=== PATIENT | female | born 1960 | race Caucasian/White ===

== ENCOUNTER 2016-12-10 11:07 | Inpatient (IN) | payer SELFPAY ==
[~2016-12-10] VITALS: Ht 152.4 cm; Wt 58.0 kg
[~2016-12-10 11:07] MED LIST: GABA300C3 PO; GLUCTAB PO; LEVO50IN PO; LISI-363 PO
[2016-12-10 11:09] VITALS: BP 133/59; PULSE 86; RESP 18; TEMP 99.3; O2SAT 94
--- NOTE | 2016-12-10 11:18 | PD ---
Physical Exam Time Seen by Provider: 11:15 Narrative 56yo F c/o episodes like shes "falling asleep" while standing up and then opening her eyes and not remembering what happened. Been happening since Saturday. Multiple times while at at home and work. Witnessed by coworker with patient. Similar symptoms 2 years ago due to kidney failure. Denies falling. Patient seen in triage. VS reviewed. Awaiting bed placement. Data Data Last Documented VS Vital Signs Date Time Temp Pulse Resp B/P Pulse Ox O2 Delivery O2 Flow Rate FiO2 12/10/16 11:09 99.3 86 18 133/59 94 Room Air MDM Supervised Visit with MELLY: Jaz Christina Dec 10, 2016 11:18
[2016-12-10] MEDS ORDERED: LISI-515 PO (12:23)
[2016-12-10] MEDS ORDERED: PREG25 PO (12:23)
[2016-12-10] MEDS ORDERED: METF1000 PO (12:23)
[2016-12-10] MEDS ORDERED: MORP1CAP64 PO (12:23)
[2016-12-10] MEDS ORDERED: SODIUM CHLOR 0.9% 1000 ML INJ 1,000 ML IV SCH (12:44)
[2016-12-10] MEDS ORDERED: SODIUM CHLORIDE 0.9% FLUSH 5 ML FLUSH IV FLUSH PRN (12:45)
--- NOTE | 2016-12-10 12:47 | PD ---
HPI Chief Complaint: Syncope/Near-Syncope Time Seen by Provider: 12:15 Travel History International Travel<30 days: No Contact w/Intl Traveler<30days: No Traveled to known affect area: No History of Present Illness HPI 56-year-old female came to the emergency room with her friend with history of progressive incoordination, increased fatigueness and increased frequency of blanking out. Patient works in a [employer] and her friend works as a colleague as well. She says she has known her for past 8 months and patient works Fridays, Saturdays and Sundays. And lately over the past couple weeks everybody has noticed that she has been blanking off in the middle of her work. She also looks more fatigued. Patient agrees with this. Says over the past week she slept almost 16 hours every day and still felt like she was fatigued. Yesterday while cooking she ended up burning her hand because she was incoordinated and blanked off. Patient has history of diabetes and says that last week when she came home and checked her blood sugar was 68. He has had poor appetite lately and in past 3 months has lost 15 pounds of weight. She also has history of chronic pain and is on morphine for the pain but has not increased her dose. In fact because of these symptoms instead of taking the morphine twice a day she's been taking once a day. She has history of cervical pain and cervical surgery in the past. Her vital signs were stable. [facility] Past Medical History Narrative Medical List of her past medical, surgical, social family history as reviewed from the nursing note. Hx Anticoagulant Therapy: No Cardiovascular Problems: Yes (HTN) Chemotherapy: No Cerebrovascular Accident: No Diabetes: Yes Patient Takes Glucophage: No Diminished Hearing: No Gastrointestinal Disorders: Yes (Crohn's disease) Hypertension: Yes Respiratory: No Thyroid Disease: Yes Tetanus Vaccination: Unknown Influenza Vaccination: No ?: Not : 4 Para: 3 Ectopic : Yes Past Surgical History Cholecystectomy: Yes Gynecologic Surgery: Yes (right ectopic) Hysterectomy: Yes Other Surgery: Yes (NECK SURGERY) Social History Alcohol Use: No Tobacco Use: Yes (1 PPD) Substance Use: No Allergies-Medications (Allergen,Severity, Reaction): Coded Allergies: Sulfa (Sulfonamide Antibiotics) (Unverified Adverse Reaction, Severe, RASH -HIVES, 12/11/16) DENIES ANY ALLERGIE codeine (Unverified Adverse Reaction, Severe, RASH, 12/11/16) penicillin G (Unverified Adverse Reaction, Intermediate, STOMACH BURNING, 12/11/16) Comments List of her allergies reviewed from the nursing note. Reported Meds & Prescriptions Reported Meds & Active Scripts Active Reported Lisinopril 20 Mg Tab 20 Mg PO DAILY Lyrica (Pregabalin) 25 Mg Cap 25 Mg PO DAILY Morphine ER 24 HR (Morphine Sulfate) 60 Mg Caper 60 Mg PO BID Metformin (Metformin HCl) 1,000 Mg Tab 1,000 Mg PO BIDPC With meals Narrative Medication List of her home medications reviewed from the nursing note. Review of Systems Except as stated in HPI: all other systems reviewed are Neg Physical Exam Narrative GENERAL: Awake, alert, no obvious distress SKIN: Focused skin assessment warm/dry. HEAD: Atraumatic. Normocephalic. EYES: Pupils equal and round. No scleral icterus. No injection or drainage. Mattering around her eyelashes. ENT: No nasal bleeding or discharge. Mucous membranes pink and moist. NECK: Trachea midline. No JVD. CARDIOVASCULAR: Regular rate and rhythm. No murmur appreciated. RESPIRATORY: No accessory muscle use. Clear to auscultation. Breath sounds equal bilaterally. GASTROINTESTINAL: Abdomen soft, non-tender, nondistended. Hepatic and splenic margins not palpable. MUSCULOSKELETAL: No obvious deformities. No clubbing. No cyanosis. No edema. NEUROLOGICAL: Awake and alert. No obvious cranial nerve deficits. Strength slightly diminished in the left upper and left lower extremity and slight ataxia and left upper and left lower extremity. Bilateral areflexia of the patellar reflex and right biceps reflex. Left biceps reflex intact. Normal speech. PSYCHIATRIC: Appropriate mood and affect; insight and judgment normal. Data Data Last Documented VS Vital Signs Date Time Temp Pulse Resp B/P Pulse Ox O2 Delivery O2 Flow Rate FiO2 12/10/16 15:00 78 16 108/52 99 Nasal Cannula 2 12/10/16 11:09 99.3 Orders Electrocardiogram (12/10/16 12:44) Complete Blood Count With Diff (12/10/16 12:44) Comprehensive Metabolic Panel (12/10/16 12:44) Creatine Kinase (Cpk) (12/10/16 12:44) Prothrombin Time / Inr (Pt) (12/10/16 12:44) Troponin I (12/10/16 12:44) Thyroid Stimulating Hormone (12/10/16 12:44) Urinalysis - C+S If Indicated (12/10/16 12:44) Blood Culture (12/10/16 12:44) Chest, Pa & Lat (12/10/16 12:44) Ct Brain W/O Iv Contrast(Rout) (12/10/16 12:44) Blood Glucose (12/10/16 12:44) Ecg Monitoring (12/10/16 12:44) Iv Access Insert/Monitor (12/10/16 12:44) Oximetry (12/10/16 12:44) Sodium Chloride 0.9% Flush (Ns Flush) (12/10/16 12:45) Sodium Chlor 0.9% 1000 Ml Inj (Ns 1000 M (12/10/16 12:44) Drug Screen, Random Urine (12/10/16 12:44) Alcohol (Ethanol) (12/10/16 12:44) Tylenol (Acetaminophen) (12/10/16 12:44) Salicylates (Aspirin) (12/10/16 12:44) Ct Cerv Spine W/O Contrast (12/10/16 ) Urine Culture (12/10/16 13:07) Ct Thorax/ Chest W Iv Contrast (12/10/16 ) Iohexol 350 Inj (Omnipaque 350 Inj) (12/10/16 15:54) Admit Order (Ed Use Only) (12/10/16 17:14) Labs Laboratory Tests Test 12/10/16 12/10/16 12:50 13:07 White Blood Count 13.1 TH/MM3 Red Blood Count 4.46 MIL/MM3 Hemoglobin 13.3 GM/DL Hematocrit 40.7 % Mean Corpuscular Volume 91.2 FL Mean Corpuscular Hemoglobin 29.9 PG Mean Corpuscular Hemoglobin 32.7 % Concent Red Cell Distribution Width 14.9 % Platelet Count 147 TH/MM3 Mean Platelet Volume 8.2 FL Neutrophils (%) (Auto) 85.8 % Lymphocytes (%) (Auto) 8.7 % Monocytes (%) (Auto) 4.9 % Eosinophils (%) (Auto) 0.2 % Basophils (%) (Auto) 0.4 % Neutrophils # (Auto) 11.3 TH/MM3 Lymphocytes # (Auto) 1.1 TH/MM3 Monocytes # (Auto) 0.6 TH/MM3 Eosinophils # (Auto) 0.0 TH/MM3 Basophils # (Auto) 0.1 TH/MM3 CBC Comment DIFF FINAL Differential Comment Prothrombin Time 11.9 SEC Prothromb Time International 1.1 RATIO Ratio Sodium Level 139 MEQ/L Potassium Level 3.6 MEQ/L Chloride Level 102 MEQ/L Carbon Dioxide Level 28.9 MEQ/L Anion Gap 8 MEQ/L Blood Urea Nitrogen 10 MG/DL Creatinine 0.68 MG/DL Estimat Glomerular Filtration 90 ML/MIN Rate Random Glucose 106 MG/DL Calcium Level 9.0 MG/DL Total Bilirubin 0.4 MG/DL Aspartate Amino Transf 23 U/L (AST/SGOT) Alanine Aminotransferase 17 U/L (ALT/SGPT) Alkaline Phosphatase 140 U/L Total Creatine Kinase 79 U/L Troponin I LESS THAN 0.02 NG/ML Total Protein 7.6 GM/DL Albumin 3.5 GM/DL Thyroid Stimulating Hormone 1.870 uIU/ML 3rd Gen Salicylates Level 3.4 MG/DL Acetaminophen Level LESS THAN 2.0 MCG/ML Ethyl Alcohol Level LESS THAN 3 MG/DL Urine Color YELLOW Urine Turbidity CLEAR Urine pH 6.5 Urine Specific [place] 1.020 Urine Protein 30 mg/dL Urine Glucose (UA) 300 mg/dL Urine Ketones NEG mg/dL Urine Occult Blood NEG Urine Nitrite NEG Urine Bilirubin NEG Urine Urobilinogen LESS THAN 2.0 MG/DL Urine Leukocyte Esterase TRACE Urine RBC 1 /hpf Urine WBC 1 /hpf Urine Squamous Epithelial <1 /hpf Cells Urine Bacteria RARE /hpf Urine Mucus FEW /lpf Microscopic Urinalysis Comment CATH-CULTURE IND Urine Opiates Screen POS Urine Barbiturates Screen NEG Urine Amphetamines Screen NEG Urine Benzodiazepines Screen NEG Urine Cocaine Screen NEG Urine Cannabinoids Screen NEG MDM Medical Decision Making Medical Screen Exam Complete: Yes Emergency Medical Condition: Yes Medical Record Reviewed: Yes Interpretation(s) Twelve-lead EKG was reviewed by me. Normal sinus rhythm, normal axis, nonspecific ST-T wave changes. Heart rate of 81 bpm. Differential Diagnosis CVA, intracranial bleed, intracranial tumor, cervical stenosis, electrolyte abnormality, medication related Narrative Course 2:16 PM the test results of back and CMP is within acceptable limits. CBC shows leukocytosis. Head CT is negative. Awaiting for the cervical CT scan report. Awaiting for the chest x-ray. If all the test results are within normal limits then I intend to discharge the patient home and she should get an MRI as an outpatient through her primary care. 2:[address] scan of the cervical spine as well as the chest x-ray is suggestive of consolidative processes in the lungs along with mediastinal lymphadenopathy. The radiologist has recommended a CT scan of the chest. I've ordered a CT chest with IV contrast. Awaiting for the test to be done and resulted. 5:[address] scan of the chest was suggestive of possible malignancy with the bilateral patchiness and lymphadenopathy in the form of possible lymphoma. She would require art class model to consult and possibly do a bronchoscopy. I have talked to the patient and she is agreed to get admitted. I just spoke with the hospitalist was accepted the case. Patient was dozing off in her oxygen saturation dipped down to 89% on room air. She is currently on nasal cannula. Patient told me that she used to see Dr. Thorne but hasn't seen him in more than 6 months since she does not have insurance and cannot afford him. Procedures EKG Prior to Arrival: No Diagnosis Primary Impression: Generalized weakness Additional Impressions: possible lung malignancy Hypoxia Admitting Information Admitting Physician Requests: Admit Scripts Prednisone 20 Mg Tab20 Mg PO BID #6 TAB Ref 0 Prov:Marixa Jackson DO 12/12/16 Levofloxacin (Levaquin)750 Mg [id number] Mg PO Q24H #5 TAB Prov:Marixa Jackson DO 12/12/16 Marii Oliva MD Dec 10, 2016 12:47
[2016-12-10 13:33] LABS: AUTOMATED NEUTROPHIL # 11.3 TH/MM3 (1.8-7.7); BASOPHIL # 0.1 TH/MM3 (0-0.2); BASOPHIL % 0.4 % (0.0-2.0); EOSINOPHIL % 0.2 % (0.0-4.0); HEMATOCRIT 40.7 % (35.0-46.0); HEMO FLAGS DIFF FINAL; LYMPH % 8.7 % (9.0-44.0); LYMPHOCYTE # 1.1 TH/MM3 (1.0-4.8); MEAN CELL VOLUME 91.2 FL (80.0-100.0); MEAN CORPUSCULAR HEMOGLOBIN 29.9 PG (27.0-34.0); MEAN CORPUSCULAR HGB CONC 32.7 % (32.0-36.0); MONO % 4.9 % (0.0-8.0); NEUT % 85.8 % (16.0-70.0); PLATELET COUNT 147 TH/MM3 (150-450); RED BLOOD COUNT 4.46 MIL/MM3 (4.00-5.30); RED CELL DISTRIBUTION WIDTH 14.9 % (11.6-17.2); WHITE BLOOD COUNT 13.1 TH/MM3 (4.0-11.0)
[2016-12-10 13:40] LABS: INTERNATIONAL NORMALIZED RATIO 1.1 RATIO; PROTHROMBIN TIME - PATIENT 11.9 SEC (9.8-11.6)
[2016-12-10 13:46] LABS: ANION GAP 8 MEQ/L (5-15); AST (GOT) 23 U/L (15-37); BICARBONATE 28.9 MEQ/L (21.0-32.0); BLOOD UREA NITROGEN 10 MG/DL (7-18); CHLORIDE 102 MEQ/L (98-107); GLOMERULAR FILTRATION RATE 90 ML/MIN (>89); POTASSIUM 3.6 MEQ/L (3.5-5.1); SODIUM (NA) 139 MEQ/L (136-145)
[2016-12-10 13:50] LABS: AMPHETAMINE, URINE NEG (NEG); BARBITURATES, URINE NEG (NEG)
[2016-12-10 13:52] LABS: COCAINE, URINE NEG (NEG)
[2016-12-10 13:57] LABS: ALKALINE PHOSPHATASE 140 U/L (45-117); ALT (GPT) 17 U/L (10-53); TOTAL BILIRUBIN ADULT 0.4 MG/DL (0.2-1.0)
[2016-12-10 13:59] LABS: CREATINE KINASE 79 U/L (26-192)
[2016-12-10 14:00] LABS: ACETAMINOPHEN LESS THAN 2.0 MCG/ML (10.0-30.0)
[2016-12-10 14:06] LABS: BACTERIA, URINE RARE /hpf; BLOOD, URINE NEG (NEG); COMMENT (UR) CATH-CULTURE IND; CULTURE IF INDICATED CATH CULTURE IND; GLUCOSE,URINE 300 mg/dL (NEG); KETONE, URINE NEG (NEG); MUCUS URINE FEW /lpf (OCC); NITRITE,URINE NEG (NEG); PH, URINE 6.5 (5.0-8.5); SQUAMOUS EPITHELIAL CELL URINE <1 /hpf (0-5); URINE COLOR YELLOW (YELLW/STRAW)
--- NOTE | 2016-12-10 14:11 | RADRPT ---
EXAM DATE/TIME: 12/10/2016 13:37 [facility] COMPARISON: CT BRAIN W/O CONTRAST, February 05, 2016, 13:26. INDICATIONS : Episode of syncope,slurred speech. RADIATION DOSE: 28.99 CTDIvol (mGy) MEDICAL HISTORY : Hypertension. SURGICAL HISTORY : Cholecystectomy. Hysterectomy.Anterior fusion c-spine ENCOUNTER: Initial ACUITY: 1 day PAIN SCALE: 0/10 LOCATION: cranial TECHNIQUE: Multiple contiguous axial images were obtained of the head. Using automated exposure control and adj ustment of the mA and/or kV according to patient size, radiation dose was kept as low as reasonably a chievable to obtain optimal diagnostic quality images. DICOM format image data is available electro nically for review and comparison. FINDINGS: CEREBRUM: The ventricles are normal for age. No evidence of midline shift, mass lesion, hemorrhage or acute in farction. No extra-axial fluid collections are seen. POSTERIOR FOSSA: The cerebellum and brainstem are intact. The 4th ventricle is midline. The cerebellopontine angle i s unremarkable. EXTRACRANIAL: The visualized portion of the orbits is intact. SKULL: The calvaria is intact. No evidence of skull fracture. CONCLUSION: 1. No acute intracranial abnormality. Exam is stable compared to previous dated 02/05/16. Salvador Rodriguez MD on December 10, 2016 at 14:08 Board Certified Radiologist. This report was verified electronically.
--- NOTE | 2016-12-10 14:25 | RADRPT ---
EXAM DATE/TIME: 12/10/2016 14:21 [facility] COMPARISON: CHEST SINGLE AP, February 05, 2016, 18:25. INDICATIONS : Syncope. MEDICAL HISTORY : Hypertension. SURGICAL HISTORY : Cholecystectomy. Hysterectomy.Anterior fusion c-spine ENCOUNTER: Initial ACUITY: 1 day PAIN SCORE: 0/10 LOCATION: Bilateral chest FINDINGS: Study is abnormal with coarse central interstitial changes present in both lungs suspicious for an in flammatory process. These are new from the comparison study. The heart is minimally enlarged with n ormal pulmonary vascularity.. The portion of the bony skeleton visualized is unremarkable. CONCLUSION: Abnormal chest with coarse interstitial changes in both lungs Saturnino Rodriguez MD FACR on December 10, 2016 at 14:23 Board Certified Radiologist. This report was verified electronically.
--- NOTE | 2016-12-10 14:34 | RADRPT ---
EXAM DATE/TIME: 12/10/2016 13:37 [facility] COMPARISON: No previous studies available for comparison. INDICATIONS : Episodes of syncope, slurred speech. RADIATION DOSE: 16.21 CTDIvol (mGy) MEDICAL HISTORY : Hypertension. SURGICAL HISTORY : Cholecystectomy. Hysterectomy.Anterior fusion c-spine ENCOUNTER: Initial ACUITY: 1 day PAIN SCALE: 0/10 LOCATION: neck TECHNIQUE: Volumetric scanning of the cervical spine was performed. Multiplanar reconstructions in the sagittal, coronal and oblique axial planes were performed. Using automated exposure control and adjustment o f the mA and/or kV according to patient size, radiation dose was kept as low as reasonably achievable to obtain optimal diagnostic quality images. DICOM format image data is available electronically f or review and comparison. FINDINGS: VERTEBRAE: Mild cervical kyphosis. There is anterior plate and screw fixation extending from C4-C7. There has be en partial or complete corpectomy at C6 with bone cage present. There is not yet osseous fusion betwe en the C4-C5 levels. The there are no findings to indicate hardware failure. ALIGNMENT: No anterolisthesis or retrolisthesis is present. The craniocervical junction demonstrates no abnormality. There is joint space narrowing osteophytes a t the atlantodens interval. C2-C3: No disc herniation, canal stenosis, or neural foraminal stenosis. C3-C4: There are endplate osteophytes anteriorly with small posterior disc osteophyte complex and left uncov ertebral osteophyte. No spinal canal stenosis or significant neural foraminal narrowing is present. C4-C5: There are bilateral uncovertebral osteophytes mildly narrowing the left neural foramen. There is no c anal stenosis or right neural foraminal narrowing. C5-C6: There is a right paracentral osteophyte. No spinal canal stenosis or neural foraminal stenosis is ravi reciated. C6-C7: No disc herniation or canal stenosis is identified. C7-T1: No disc herniation, canal stenosis, or neural foraminal stenosis is identified. There is partially visualized airspace consolidation within the lungs bilaterally and there are enlar ged lymph nodes in the superior mediastinum. CONCLUSION: 1. Postsurgical changes are present at C4-C7, as above. Hardware demonstrates no acute finding. 2. There are degenerative changes at some of the remaining levels. However, no significant spinal can al stenosis is identified. 3. Nonspecific bilateral airspace consolidation within the lungs with enlarged lymph nodes in the sup erior mediastinum. Suggest correlating with the clinical history and consider chest imaging for furth er evaluation, if needed.. Spencer Jeffrey MD on December 10, 2016 at 14:26 Board Certified Radiologist. This report was verified electronically.
[2016-12-10 15:00] VITALS: BP 108/52; PULSE 78; RESP 16; O2SAT 99
[2016-12-10] MEDS ORDERED: IOHEXOL 350 MG/ML 10 ML VIAL (for RAD DIAG) IV ONE (15:54)
--- NOTE | 2016-12-10 16:27 | RADRPT ---
EXAM DATE/TIME: 12/10/2016 15:42 [facility] COMPARISON: CT ABDOMEN & PELVIS W CONTRAST, December 20, 2015, 14:44. CHEST PA & LAT, December 10, 2016, 14:21. INDICATIONS : Lung were abnormal on c-spine cat scan. IV CONTRAST: 94 cc Omnipaque 350 (iohexol) IV RADIATION DOSE: 3.34 CTDIvol (mGy) MEDICAL HISTORY : Cardiovascular disease. Hypertension. SURGICAL HISTORY : Cholecystectomy. Hysterectomy.Anterior fussion ENCOUNTER: Initial ACUITY: 3 days PAIN SCALE: 0/10 LOCATION: chest TECHNIQUE: Volumetric scanning of the chest was performed. Using automated exposure control and adjustment of t he mA and/or kV according to patient size, radiation dose was kept as low as reasonably achievable to obtain optimal diagnostic quality images. DICOM format image data is available electronically for review and comparison. Follow-up recommendations for detected pulmonary nodules are based at a minimum on nodule size and pa tient risk factors according to Fleischner Society Guidelines. FINDINGS: LUNGS: There is a somewhat patchy areas of groundglass opacity bilaterally involving both the upper and lowe r lung zones but being more severe in the lower lung zones. There were also areas of mild septal thic kening, traction bronchiectasis, and architectural distortion. No pneumothorax is present. PLEURA: There is no pleural thickening or pleural effusion. MEDIASTINUM: The heart and great vessels demonstrate no acute abnormality. There is a mediastinal and subcarinal lymphadenopathy. Small lymph nodes are present in the hilar regions but they're not enlarged by size criteria. AXILLAE: Within normal limits. No lymphadenopathy. SKELETAL: There are degenerative changes of the thoracic spine and patient is post cervical spine surgery with hardware present. MISCELLANEOUS: The visualized upper abdominal organs demonstrate no acute abnormality. The common bile duct is enlar ged in this patient post cholecystectomy. Measures approximately 9 mm. This finding is stable compare d to the November 2015 CT. CONCLUSION: 1. Abnormal bilateral patchy alveolar opacities, as described above. Findings involve all lobes but a re lower lung zone predominant. These findings are new since November 2015. Additionally, there is medi astinal lymphadenopathy. One consideration with these findings includes sarcoidosis. However, there i s no hilar lymphadenopathy and the distribution would be atypical (sarcoidosis is typically upper celestina g zone predominant). Other considerations include lymphoma or nonspecific inflammatory or infectious processes. Consider pulmonary consultation for further evaluation. 2. No other acute findings identified. Spencer Jeffrey MD on December 10, 2016 at 16:17 Board Certified Radiologist. This report was verified electronically.
[2016-12-10] MEDS ORDERED: SODIUM CHLORIDE 0.9% FLUSH 10 ML FLUSH IV FLUSH PRN ×2 (17:30)
[2016-12-10] MEDS ORDERED: oxyCODONE/ACETAMINOPHEN 5 MG/325 MG TAB PO PRN (17:30)
[2016-12-10] MEDS ORDERED: ONDANSETRON HCL 4 MG/2 ML VIAL IVP PRN (17:30)
[2016-12-10] MEDS ORDERED: LACTULOSE SYRUP 20 GM/30 ML CUP PO PRN (17:30)
[2016-12-10] MEDS ORDERED: ZOLPIDEM TARTRATE 5 MG TAB PO PRN (17:30)
[2016-12-10] MEDS ORDERED: MORPHINE SULFATE 4 MG/ML INJ IV PRN ×3 (17:30)
[2016-12-10] MEDS ORDERED: PROCHLORPERAZINE 25 MG SUPP RECTAL PRN (17:30)
[2016-12-10] MEDS ORDERED: ACETAMINOPHEN 325 MG TAB PO PRN (17:30)
[2016-12-10] MEDS ORDERED: oxyCODONE/ACETAMINOPHEN 10 MG/325 MG TAB PO PRN (17:30)
[2016-12-10] MEDS ORDERED: GLUCAGON 1 MG/ML VIAL OTHER PRN (17:30)
[2016-12-10] MEDS ORDERED: RESP: ALBUTEROL 2.5 MG/3 ML NEB (PRN) INH (17:30)
[2016-12-10] MEDS ORDERED: MAGNESIUM HYDROXIDE SUSP 30 ML CUP PO PRN (17:30)
[2016-12-10] MEDS ORDERED: BISACODYL 10 MG SUPP RECTAL PRN (17:30)
[2016-12-10] MEDS ORDERED: DEXTROSE 50% IN WATER 50 ML VIAL(D50) IV PRN (17:30)
[2016-12-10] MEDS ORDERED: NALOXONE HCL 0.4 MG/ML AMP IV PRN (17:30)
[2016-12-10] MEDS ORDERED: SENNOSIDES 8.6 MG TAB PO PRN (17:30)
[2016-12-10 17:58] VITALS: O2SAT 98
[2016-12-10 18:03] LABS: BLOOD GAS BASE EXCESS 0.3 mmol/L (-2-2); BLOOD GAS CARBOXYHEMOGLOBIN 4.9 % (0-4); BLOOD GAS HCO3 25 mmol/L (22-26); BLOOD GAS METHEMOGLOBIN 0.7 % (0-2); BLOOD GAS O2 HGB SATURATION 91 % (90-100); BLOOD GAS OXYGEN CONTENT 14.9 Vol % (12.0-20.0); BLOOD GAS PCO2 44 mmHg (38-42); BLOOD GAS PO2 83 mmHG (61-120); BLOOD GAS TOTAL HGB 11.5 G/DL (12.0-16.0); CRITICAL VALUE NO; DRAW SITE RT RADIAL; FIO2 32 %; LITER FLOW 3 L/M; NUMBER OF ARTERIAL PUNCTURES 1; OXYGEN DEVICE NASAL CANNULA; STAT NO; TEMP CORR TO 98.6; ULNAR PULSE PRESENT
--- NOTE | 2016-12-10 18:21 | HHI.HP ---
[facility] No Primary Care Physician Admission Diagnosis generalized weakness, questionable lung malignancy, hypoxia Diagnoses: (1) DM (diabetes mellitus) Diagnosis: Secondary (2) Respiratory abnormalities Diagnosis: Principal (3) HTN (hypertension) Diagnosis: Secondary (4) Hypoxia Diagnosis: Principal (5) Hypothyroidism Diagnosis: Secondary (6) Generalized weakness Diagnosis: Principal (7) Lung mass Diagnosis: Principal (8) Tobacco abuse Diagnosis: Principal (9) COPD exacerbation Chief Complaint: Generalized fatigue, weight loss Travel History International Travel<30 Days: No Contact w/Intl Traveler <30 Da: No Traveled to Known Affected Are: No Sepsis Criteria SIRS Criteria (2 or more): WBC > 32304, < 4000 or > 10% bands History of Present Illness Written by Toyin Esquivel, acting as scribe for Dr. Bergman on 12/10/16 at 17: 54. Patient is a 56-year-old female with primary medical history of HTN, Crohn's disease, DM 2, hypothyroidism, neuropathy who came into the hospital for evaluation of increasing fatigue, confusion, loss of balance. Patient states that she has been tired, increasing sleepiness, states "passing out and falling asleep while standing." States she has a couple of these episodes in the past 6 months but over the weekend while working she feels that it has increased. On her days off Saturday and Saturday last week she thought that she slept for more than 18 hours. People have been noticing that she is off balance , words are coming out slow, and also with disorientation and increased confusion. She denies any falls. She also notes that she's been losing weight , she thought that is just because of her job at the [employer] however people have been telling her about her weight loss. Patient verified her medical history states that she has been diagnosed with diabetes for a while and has been taking metformin however she ran out of this medication about 3 months ago. Also states that her sugars are usually low at home less than 140s when she checks it even off metformin. Patient also states that she was diagnosed with hypothyroidism and has been taking Synthroid and she thinks the dose is 250 g however she ran out of this medication also about 2 months ago. States that she usually feels sleepy and has been gaining weight with being off of the medication however this time, she states that"I don't really feel the effects of the hypothyroidism being off of the medication because I'm just sleeping and losing weight." She also reports that she is on chronic pain management for her cervical problems for which she takes morphine ER 60 mg twice a day but she only takes it once a day for most times. Patient is on O2 nasal cannula, denies headaches, palpitations, chest pain, dizziness. Denies fevers, chills, nausea, vomiting, diarrhea. Denies any pain or discomfort on exam. Review of Systems Constitutional: COMPLAINS OF: Fatigue, Weight loss, Change in appetite Eyes: DENIES: Blurred vision, Diplopia, Eye inflammation, Eye pain, Vision loss , Photosensitivity Ears, nose, mouth, throat: DENIES: Tinnitus, Hearing loss, Vertigo, Nasal discharge, Oral lesions, Throat pain Respiratory: COMPLAINS OF: Cough, Wheezing, Sputum production, Shortness of breath, DENIES: Apneas, Snoring, Hemoptysis Cardiovascular: DENIES: Chest pain, Palpitations, Syncope, Dyspnea on Exertion Gastrointestinal: DENIES: Abdominal pain, Black stools, Bloody stools, Constipation Musculoskeletal: COMPLAINS OF: Joint pain, DENIES: Muscle aches Integumentary: DENIES: Abnormal pigmentation, Pruritus, Rash Hematologic/lymphatic: DENIES: Bruising, Lymphadenopathy Immunologic/allergic: DENIES: Eczema, Urticaria Neurologic: COMPLAINS OF: Localized weakness, Poor Balance, DENIES: Abnormal gait, Headache Except as stated in HPI: all other systems reviewed are Neg Past Family Social History Past Medical History HTN Crohn's DM 2 Hypothyroidism Chronic pain management secondary to cervical pain Past Surgical History Cervical surgery Cholecystectomy Hysterectomy Ectopic Reported Medications Reported Meds & Active Scripts Active Reported Lisinopril 20 Mg Tab 20 Mg PO DAILY Lyrica (Pregabalin) 25 Mg Cap 25 Mg PO DAILY Morphine ER 24 HR (Morphine Sulfate) 60 Mg Caper 60 Mg PO BID Metformin (Metformin HCl) 1,000 Mg Tab 1,000 Mg PO BIDPC With meals Allergies: Coded Allergies: Codeine (Verified Adverse Reaction, Severe, RASH, 12/10/16) Sulfa (Verified Adverse Reaction, Severe, RASH-HIVES, 12/10/16) DENIES ANY ALLERGIE Penicillin (Verified Adverse Reaction, Intermediate, STOMACH BURNING, 12/10) Active Ordered Medications Current Medications Medications (Trade) Dose Ordered Sig/Malou Route Start Time Stop Time Status Last Admin (NS Flush) 2 ml UNSCH PRN IV FLUSH 12/10/16 12:45 (D50w (Vial) Inj) 50 ml UNSCH PRN IV 12/10/16 17:30 UNV (Glucagon Inj) 1 mg UNSCH PRN OTHER 12/10/16 17:30 UNV (NS Flush) 2 ml UNSCH PRN IV FLUSH 12/10/16 17:30 UNV (NS Flush) 2 ml BID IV FLUSH 12/10/16 21:00 UNV (Zofran Inj) 4 mg Q6H PRN IVP 12/10/16 17:30 UNV (Compazine Supp) 25 mg Q12H PRN KS 12/10/16 17:30 UNV (Ambien) 5 mg HS PRN PO 12/10/16 17:30 UNV (Heparin Inj) 5,000 units Q8H SQ 12/10/16 17:30 UNV (Tylenol) 650 mg Q6H PRN PO 12/10/16 17:30 UNV (Percocet 5-325 Mg) 1 tab Q6H PRN PO 12/10/16 17:30 UNV (Percocet 10-325 Mg) 1 tab Q6H PRN PO 12/10/16 17:30 UNV (Morphine Inj) 2 mg Q3H PRN IV 12/10/16 17:30 UNV (Morphine Inj) 4 mg Q3H PRN IV 12/10/16 17:30 UNV (Morphine Inj) 4 mg Q3H PRN IV 12/10/16 17:30 UNV (Narcan Inj) 0.4 mg UNSCH PRN IV 12/10/16 17:30 UNV (Ronna-Colace) 1 tab BID PO 12/10/16 21:00 UNV (Milk Of Magnesia Liq) 30 ml Q12H PRN PO 12/10/16 17:30 UNV (Senokot) 17.2 mg Q12H PRN PO 12/10/16 17:30 UNV (Dulcolax Supp) 10 mg DAILY PRN RECTAL 12/10/16 17:30 UNV (Lactulose Liq) 30 ml DAILY PRN PO 12/10/16 17:30 UNV (NS Flush) 2 ml BID IV FLUSH 12/10/16 21:00 UNV (NS Flush) 2 ml UNSCH PRN IV FLUSH 12/10/16 17:30 UNV (Symbicort 160-4.5 Inh) 2 puff Q12HR INH 12/10/16 21:00 UNV (SoluMEDROL INJ) 60 mg Q6H IVP 12/10/16 17:30 UNV (Levaquin) 750 mg Q24H PO 12/10/16 17:30 UNV (Habitrol 21 Mg Patch.24 Hr) 1 patch DAILY TD 12/10/16 17:30 UNV (Mucinex Er) 600 mg BID PO 12/10/16 21:00 UNV (Prinivil) 20 mg DAILY PO 12/11/16 09:00 UNV (Glucophage) 1,000 mg BIDPC PO 12/10/16 18:00 UNV (Lyrica) 25 mg DAILY PO 12/11/16 09:00 UNV Non-Formulary Medication 60 mg BID PO 12/10/16 21:00 UNV Family History Father has hypertension, diabetes Mother has diabetes, cancer of the tongue that move into her lymph nodes Social History Denies alcohol use Current day smoker, smokes 1-1/2-1 pack per day Denies illicit drug use Physical Exam Vital Signs Vital Signs Date Time Temp Pulse Resp B/P Pulse Ox O2 Delivery O2 Flow Rate FiO2 12/10/16 15:00 78 16 108/52 99 Nasal Cannula 2 12/10/16 12:23 Room Air 12/10/16 11:09 99.3 86 18 133/59 94 Room Air Physical Exam GENERAL: This is a thin-appearing, well-developed patient, appears fatigued. SKIN: No rashes, ecchymoses or lesions. Warm and dry. HEAD: Normocephalic. ATraumatic EYES: Pupils equal round and reactive. Extraocular motions intact. No scleral icterus. No injection or drainage. ENT: Nose without bleeding. Throat without erythema. Uvula midline. Airway patent. Tongue is midline NECK: Trachea midline. No JVD neck is supple CARDIOVASCULAR: Regular rate and rhythm without murmurs, gallops, or rubs. S1- S2 no S3 or S4 no heave or thrill RESPIRATORY: Coarse breath sounds, expiratory wheezes throughout. GASTROINTESTINAL: Abdomen soft, non-tender, nondistended. Bowel sounds active 4. No guarding. MUSCULOSKELETAL: Extremities without clubbing, cyanosis, or edema. Good pedal pulses bilaterally in upper extremity and lower extremity bilaterally NEUROLOGICAL: Awake and alert. Oriented to place, time, person. Cranial nerves II through XII intact. Motor and sensory grossly within normal limits. Normal speech. Motor strength is about 4 out of 5 in upper extremity lower extremity bilaterally Insight and judgment is good mood and behavior appropriate Laboratory Laboratory Tests Test 12/10/16 12/10/16 12:50 13:07 White Blood Count 13.1 Red Blood Count 4.46 Hemoglobin 13.3 Hematocrit 40.7 Mean Corpuscular Volume 91.2 Mean Corpuscular Hemoglobin 29.9 Mean Corpuscular Hemoglobin 32.7 Concent Red Cell Distribution Width 14.9 Platelet Count 147 Mean Platelet Volume 8.2 Neutrophils (%) (Auto) 85.8 Lymphocytes (%) (Auto) 8.7 Monocytes (%) (Auto) 4.9 Eosinophils (%) (Auto) 0.2 Basophils (%) (Auto) 0.4 Neutrophils # (Auto) 11.3 Lymphocytes # (Auto) 1.1 Monocytes # (Auto) 0.6 Eosinophils # (Auto) 0.0 Basophils # (Auto) 0.1 CBC Comment DIFF FINAL Differential Comment Prothrombin Time 11.9 Prothromb Time International 1.1 Ratio Sodium Level 139 Potassium Level 3.6 Chloride Level 102 Carbon Dioxide Level 28.9 Anion Gap 8 Blood Urea Nitrogen 10 Creatinine 0.68 Estimat Glomerular Filtration 90 Rate Random Glucose 106 Calcium Level 9.0 Total Bilirubin 0.4 Aspartate Amino Transf 23 (AST/SGOT) Alanine Aminotransferase 17 (ALT/SGPT) Alkaline Phosphatase 140 Total Creatine Kinase 79 Troponin I LESS THAN 0.02 Total Protein 7.6 Albumin 3.5 Thyroid Stimulating Hormone 1.870 3rd Gen Salicylates Level 3.4 Acetaminophen Level LESS THAN 2.0 Ethyl Alcohol Level LESS THAN 3 Urine Color YELLOW Urine Turbidity CLEAR Urine pH 6.5 Urine Specific [place] 1.020 Urine Protein 30 Urine Glucose (UA) 300 Urine Ketones NEG Urine Occult Blood NEG Urine Nitrite NEG Urine Bilirubin NEG Urine Urobilinogen LESS THAN 2.0 Urine Leukocyte Esterase TRACE Urine RBC 1 Urine WBC 1 Urine Squamous Epithelial <1 Cells Urine Bacteria RARE Urine Mucus FEW Microscopic Urinalysis Comment CATH-CULTURE IND Urine Opiates Screen POS Urine Barbiturates Screen NEG Urine Amphetamines Screen NEG Urine Benzodiazepines Screen NEG Urine Cocaine Screen NEG Urine Cannabinoids Screen NEG Date/Time Procedure Status Source Growth 12/10/16 13:07 Urine Culture Received Urine Catheterized Urine Pending 12/10/16 13:02 Aerobic Blood Culture Received Blood Peripheral Pending 12/10/16 13:02 Anaerobic Blood Culture Received Blood Peripheral Pending Result Diagram: 12/10/16 1250 12/10/16 1250 Imaging Last Impressions Head CT 12/10/16 1244 Signed Impressions: Service Date/Time: Saturday, December 10, 2016 13:37 - CONCLUSION: 1. No acute intracranial abnormality. Exam is stable compared to previous dated 02/05/16. Salvador Rodriguez MD Chest X-Ray 12/10/16 1244 Signed Impressions: Service Date/Time: Saturday, December 10, 2016 14:21 - CONCLUSION: Abnormal chest with coarse interstitial changes in both lungs Saturnino Rodriguez MD FACR Chest CT 12/10/16 0000 Signed Impressions: Service Date/Time: Saturday, December 10, 2016 15:42 - CONCLUSION: 1. Abnormal bilateral patchy alveolar opacities, as described above. Findings involve all lobes but are lower lung zone predominant. These findings are new since November 2015. Additionally, there is mediastinal lymphadenopathy. One consideration with these findings includes sarcoidosis. However, there is no hilar lymphadenopathy and the distribution would be atypical (sarcoidosis is typically upper lung zone predominant). Other considerations include lymphoma or nonspecific inflammatory or infectious processes. Consider pulmonary consultation for further evaluation. 2. No other acute findings identified. Spencer Jeffrey MD Cervical Spine CT 12/10/16 0000 Signed Impressions: Service Date/Time: Saturday, December 10, 2016 13:37 - CONCLUSION: 1. Postsurgical changes are present at C4-C7, as above. Hardware demonstrates no acute finding. 2. There are degenerative changes at some of the remaining levels. However, no significant spinal canal stenosis is identified. 3. Nonspecific bilateral airspace consolidation within the lungs with enlarged lymph nodes in the superior mediastinum. Suggest correlating with the clinical history and consider chest imaging for further evaluation, if needed.. Spencer Jeffrey MD Assessment and Plan Problem List: (1) Generalized weakness ICD Code: R53.1 Status: Acute (2) DM (diabetes mellitus) ICD Code: E11.9 Status: Acute (3) Respiratory abnormalities ICD Code: J98.9 Status: Acute (4) Hypothyroidism ICD Code: E03.9 Status: Acute (5) HTN (hypertension) ICD Code: I10 Status: Acute (6) Hypoxia ICD Code: R09.02 Status: Acute (7) Lung mass ICD Code: R91.8 Status: Acute (8) Tobacco abuse ICD Code: Z72.0 Status: Acute (9) COPD exacerbation ICD Code: J44.1 Status: Acute Assessment and Plan Patient is a 56-year-old female with primary medical history of HTN, Crohn's disease, DM 2, hypothyroidism, neuropathy who came into the hospital for evaluation of increasing fatigue, confusion, loss of balance. Respiratory Failure, Type 1 Hypercapneic COPD exacerbation VS CAP - Current a smoker, counseled. Placed on nicotine patch. Possibly with underlying COPD. - CT of the chest showed 1. Abnormal bilateral patchy alveolar opacities, as described above. Findings involve all the lobes but are lower lung zone predominant. These findings are new since November 2015. Additionally, there is mediastinal lymphadenopathy. One consideration with this findings included sarcoidosis. However there is no hilar lymphadenopathy in the distribution of the atypical other considerations include lymphoma or nonspecific inflammatory or infectious process. - Chest x-ray showed normal chest with coarse interstitial changes in both lungs - Pulmonary consultation for further evaluation, appreciate input and recommendations. - DuoNeb nebs scheduled and when necessary - Solu-Medrol IV 60 mg every 6 hours - Levaquin 750 mg PO daily - Symbicort twice a day. Guaifenesin twice a day - Continue O2 nasal cannula, keep O2 sat greater than 90% - Monitor respiratory status Fatigue, generalized weakness Poor balance - CT of the head showed no acute intracranial abnormality. Exam is stable compared to previous dated 02/05/16 - TSH 1.870 WNL, she is off thyroid meds x2 mos. - We'll await for pulmonary consult, ?mediastinal lymphadenopathy - Monitor use of narcotics, can contribute to poor balance and fatigability - EKG reviewed by me, normal sinus rhythm rate of 81, no ST changes noted - Troponin less than 0.02, CK 79 Will ask occupational and physical therapy to eval and treat HTN - Continue with home medication lisinopril 20 mg daily - Monitor BP trend DM 2 - Restart home medication metformin 1000 mg twice a day - Insulin sliding scale, monitor Accu-Cheks - Monitor for hypoglycemia. Check hemoglobin A1c. - UA positive for glucose Chronic pain, cervical Neuropathy - Cervical CT showed 1. Postsurgical changes are present at C4 to C7. Hardware demonstrates no acute finding. 2. There are degenerative changes at some of the remaining levels. However, no significant spinal canal stenosis is identified. 3. Nonspecific bilateral airspace consolidation within the lungs with enlarged lymph nodes in the superior mediastinum. - Continue home medication of morphine ER 60 mg twice a day. Hold for sedation. - Lyrica 25 mg daily. Hold for sedation DVT prop heparin We'll consult pulmonary. Continue on dual nebs and steroids will follow her throughout the admission for any other issues that may arise make sure she is on Mucinex and incentive spirometry The exam, history, and the medical decision-making described in the above note were completed with the assistance of the mid-level provider. I reviewed and agree with the findings presented. I attest that I had a [id number] encounter with the patient on the same day, and personally performed and documented my assessment and findings in the medical record. Code Status Full Code Discussed Condition With Patient, nursing, ED attending Physician Certification 2 Midnight Certification Type: Admission for Inpatient Services Order for Inpatient Services The services are ordered in accordance with Medicare regulations or non- Medicare payer requirements, as applicable. In the case of services not specified as inpatient-only, they are appropriately provided as inpatient services in accordance with the 2-midnight benchmark. Estimated LOS (days): 3 days is the estimated time the patient will need to remain in the hospital, assuming treatment plan goals are met and no additional complications. Post-Hospital Plan: Not yet determined Toyin Portillo Dec 10, 2016 18:21 Saturnino Bergman DO Dec 10, 2016 18:35
[2016-12-10 18:47] VITALS: BP 121/59; PULSE 68; RESP 24; O2SAT 99
--- NOTE | 2016-12-10 18:54 | EKG ---
Date Performed: 12/10/2016 Time Performed: 12:11:19 PTAGE: 56 years EKG: Sinus rhythm NONSPECIFIC T-WAVE ABNORMALITY BORDERLINE ECG Compared to the PREVIOUS TRACING rate has increased and Nonspecific T wave changes are now present PREVI OUS TRACIN02/05/2016 17.58 DOCTOR: Jesus Munoz Interpretating Date/Time 12/10/2016 18:53:30
[2016-12-10] MEDS: metFORMIN HCL 500 MG TAB PO SCH (19:30)
[2016-12-10 20:00] VITALS: BP 110/57; PULSE 59; RESP 18; TEMP 98.5; O2SAT 98
[2016-12-10] MEDS: RESP: ALBUTEROL 2.5 MG/IPRATROPIUM 0.5 MG NEB (SCH) INH (20:00)
--- NOTE | 2016-12-10 20:29 | MH ---
cc: CODY CAVANAUGH DATE OF ADMISSION 12/10/[address] Valera REASON FOR CONSULTATION History of COPD and lung infiltrate. HISTORY OF THE PRESENT ILLNESS Ms. Escamilla is a 56-year-old female with longstanding history of smoking, Crohn's disease, diabetes mellitus, and hypertension. The patient came to the hospital with increasing fatigue, shortness of breath, loss of weight and loss of balance. She says that she has excessively sleepy. She goes to bed easily and sleeps 10-12 hours, sometimes she still feels tired. Sometimes she feels that while she is standing she goes to sleep for few minutes, does not pass out. No change with any emotional upset. No passing out episodes. Because of the worsening of symptoms she came to the hospital. She had a workup done her. LABORATORY DATA Her CBC showed a WBC count of 13.1, hemoglobin 13.3, hematocrit 40.7, MCV 91, platelet count 147. Sodium 130 and potassium 3.6. Chloride 102, CO2 28. BUN 10, creatinine 0.68. INR is 1.1. Blood gas pH 7.37, PCO2 44, PO2 83, bicarbonate 25. IMAGING Her CT scan of the head showed no acute intracranial abnormality. CT scan of the chest shows bilateral patchy alveolar opacities in both lung zones. No adenopathy. CT scan of the cervical spine shows post surgical changes. PAST MEDICAL HISTORY Significant for: 1. History of hypertension. 2. Diabetes mellitus. 3. Chronic obstructive pulmonary disease. 4. Crohn's disease. 5. Chronic pain. MEDICATIONS She is currently takin. Lisinopril 20 milligrams daily. 2. Lyrica 25 milligrams daily. 3. Heparin 5000 q.8h. 4. Symbicort 160 /4.5 two puffs twice a day. 5. Mucinex 600 mg twice a day. 6. Solu-Medrol 60 mg q.6h. 7. Albuterol/Atrovent nebulizer. 8. Nicotine patch. 9. Levaquin 750 mg a day. 10. Metformin 1000 mg twice a day. 11. Ambien 5 mg at nighttime. 12. Oxycodone for pain. 13. Morphine for pain. ALLERGIES SHE IS ALLERGIC TO CODEINE, SULFA AND PENICILLIN. SOCIAL HISTORY She has a long history of smoking, continues to smoke 1-1/2 packs of cigarettes a day. Denies any drug use or alcohol use. She works at the [employer]. FAMILY HISTORY She is single, has three children. REVIEW OF SYSTEMS She has lost 20 pounds weight which she attributes to her being over worked. Appetite is fair. No hemoptysis. No deep venous thrombosis or pulmonary embolism. No seizure, stroke or epilepsy. PHYSICAL EXAMINATION GENERAL: Well-developed, well-nourished female. Anxious. Not in any acute distress. VITAL SIGNS: Blood pressure 121/50, heart rate 60, respiratory rate 24, temperature 99. HEENT: Pupils are equal and reactive to light. Oral mucosa, nasal mucosa normal. NECK: Supple. JVP not raised. CHEST: She has bilateral expiratory rhonchi. CARDIOVASCULAR: S1, S2 normal. ABDOMEN: Soft, nondistended. Bowel sounds are present. EXTREMITIES: No edema. IMPRESSION 1. COPD exacerbation. 2. Bilateral patchy infiltrate, possible atypical pneumonia, interstitial infiltrate. However, she has Crohn disease. Interstitial disease secondary to connective tissue disorder is not ruled out. 3. Diabetes mellitus. 4. Nicotine use. 5. Episode of fall. 6. Sleep and excessive sleepiness, possible underlying sleep apnea and narcolepsy. PLAN I discussed with the patient we will give her aerosol treatment, IV Solu-Medrol. Continue antibiotic. Check a sputum culture. Check Legionella and pneumococcal antigen. If she is not better then we will consider bronchoscopy. I also advised her for sleep study as an outpatient. I advised her strongly to quit smoking. Further treatment will depend on the course in the hospital. Thank you Dr. Valera for this consultation. MD FRANCO Kelly/LEIGHTON /7:24 PM /7:48 PM TOMAS
[2016-12-10] MEDS ORDERED: SODIUM CHLORIDE 0.9% FLUSH 10 ML FLUSH IV FLUSH SCH (21:00)
[2016-12-10] MEDS: BUDESONIDE-FORMOTEROL 160/4.5 MCG INHALER INH SCH (21:00)
[2016-12-10] MEDS: SODIUM CHLORIDE 0.9% FLUSH 10 ML FLUSH IV FLUSH SCH (21:00)
[2016-12-10 21:26] VITALS: BP 128/58; PULSE 73; RESP 18; TEMP 98.8; O2SAT 96
[2016-12-10] MEDS: DOCUSATE SODIUM 50 MG/SENNA 8.6 MG TAB PO SCH (21:34)
[2016-12-10] MEDS: LEVOFLOXACIN 750 MG TAB PO SCH (21:34)
[2016-12-10] MEDS: methylPREDNISolone SOD SUCC 125 MG/2 ML VIAL IVP SCH (21:34)
[2016-12-10] MEDS: MORPHINE SULFATE 60 MG CONTROLLED RELEASE TAB PO SCH (21:35)
[2016-12-10] MEDS: HEPARIN SODIUM - SQ 10,000 UNITS/ML VIAL SQ SCH (21:35)
[2016-12-10] MEDS: INSULIN ASPART SUPPLEMENTAL SCALE SQ SCH (21:38)
[2016-12-10] MEDS: guaiFENesin E.R. 600 MG TAB PO SCH (21:42)
[2016-12-10] MEDS: NICOTINE 21 MG/24 HR PATCH TD SCH (22:02)
[2016-12-11] VITALS (7 sets, daily range): BP systolic 99–125; BP diastolic 51–59; PULSE 58–75; RESP 14–20; TEMP 97.9–98.4; O2SAT 92–97
[2016-12-11] MEDS: RESP: ALBUTEROL 2.5 MG/IPRATROPIUM 0.5 MG NEB (SCH) INH ×5 (00:29→21:11)
[2016-12-11] MEDS: methylPREDNISolone SOD SUCC 125 MG/2 ML VIAL IVP SCH ×4 (02:25→21:46)
[2016-12-11] MEDS: HEPARIN SODIUM - SQ 10,000 UNITS/ML VIAL SQ SCH ×3 (06:24→21:45)
[2016-12-11] MEDS: INSULIN ASPART SUPPLEMENTAL SCALE SQ SCH ×4 (06:25→21:00)
[2016-12-11] MEDS: SODIUM CHLORIDE 0.9% FLUSH 10 ML FLUSH IV FLUSH SCH ×2 (09:00→21:00)
[2016-12-11] MEDS: BUDESONIDE-FORMOTEROL 160/4.5 MCG INHALER INH SCH ×2 (09:00→21:44)
[2016-12-11] MEDS: NICOTINE 21 MG/24 HR PATCH TD SCH (09:40)
[2016-12-11] MEDS: LISINOPRIL 20 MG TAB PO SCH (09:43)
[2016-12-11] MEDS: DOCUSATE SODIUM 50 MG/SENNA 8.6 MG TAB PO SCH ×2 (09:43→21:00)
[2016-12-11] MEDS: metFORMIN HCL 500 MG TAB PO SCH ×2 (09:43→18:10)
[2016-12-11] MEDS: PREGABALIN 25 MG CAP PO SCH (09:44)
[2016-12-11] MEDS: guaiFENesin E.R. 600 MG TAB PO SCH ×2 (09:45→21:45)
[2016-12-11] MEDS: MORPHINE SULFATE 60 MG CONTROLLED RELEASE TAB PO SCH ×2 (09:45→21:46)
[2016-12-11 12:41] LABS: AUTOMATED NEUTROPHIL # 8.1 TH/MM3 (1.8-7.7); BASOPHIL % 0.1 % (0.0-2.0); HEMATOCRIT 39.3 % (35.0-46.0); HEMO FLAGS DIFF FINAL; LYMPHOCYTE # 0.4 TH/MM3 (1.0-4.8); MEAN CELL VOLUME 90.5 FL (80.0-100.0); MEAN CORPUSCULAR HGB CONC 33.1 % (32.0-36.0); MONO % 1.9 % (0.0-8.0); PLATELET COUNT 151 TH/MM3 (150-450); RED BLOOD COUNT 4.34 MIL/MM3 (4.00-5.30); RED CELL DISTRIBUTION WIDTH 15.4 % (11.6-17.2); WHITE BLOOD COUNT 8.7 TH/MM3 (4.0-11.0)
--- NOTE | 2016-12-11 12:52 | HHI.PR ---
Subjective Remarks Follow up for probable bilateral pneumonia. Patient is doing well on room air. No fever, chills. Ambulating well, tolerating diet well. Objective Vitals Vital Signs Date Time Temp Pulse Resp B/P Pulse Ox O2 Delivery O2 Flow Rate FiO2 12/11/16 12:00 97.9 58 16 110/53 96 12/11/16 08:36 92 Nasal Cannula 2.00 12/11/16 08:00 98.0 60 14 125/59 95 12/11/16 07:00 Nasal Cannula 2.00 12/11/16 04:00 98.4 64 20 99/52 92 12/11/16 00:30 97 Nasal Cannula 2.00 12/10/16 21:26 98.8 73 18 128/58 96 12/10/16 20:00 98.5 59 18 110/57 98 12/10/16 20:00 2.00 12/10/16 18:47 68 24 121/59 99 Nasal Cannula 2 12/10/16 17:58 98 Nasal Cannula 3.00 12/10/16 15:00 78 16 108/52 99 Nasal Cannula 2 I/O 12/10/16 12/10/16 12/10/16 12/11/16 12/11/16 12/11/16 07:00 15:00 23:00 07:00 15:00 23:00 Intake Total 200 ml Balance 200 ml Intake Oral 200 ml # Voids 1 1 Result Diagram: 12/11/16 1212 12/10/16 1250 Imaging Last Impressions Head CT 12/10/16 1244 Signed Impressions: Service Date/Time: Saturday, December 10, 2016 13:37 - CONCLUSION: 1. No acute intracranial abnormality. Exam is stable compared to previous dated 02/05/16. Salvador Rodriguez MD Chest X-Ray 12/10/16 1244 Signed Impressions: Service Date/Time: Saturday, December 10, 2016 14:21 - CONCLUSION: Abnormal chest with coarse interstitial changes in both lungs Saturnino Rodriguez MD FACR Chest CT 12/10/16 0000 Signed Impressions: Service Date/Time: Saturday, December 10, 2016 15:42 - CONCLUSION: 1. Abnormal bilateral patchy alveolar opacities, as described above. Findings involve all lobes but are lower lung zone predominant. These findings are new since November 2015. Additionally, there is mediastinal lymphadenopathy. One consideration with these findings includes sarcoidosis. However, there is no hilar lymphadenopathy and the distribution would be atypical (sarcoidosis is typically upper lung zone predominant). Other considerations include lymphoma or nonspecific inflammatory or infectious processes. Consider pulmonary consultation for further evaluation. 2. No other acute findings identified. Spencer Jeffrey MD Cervical Spine CT 12/10/16 0000 Signed Impressions: Service Date/Time: Saturday, December 10, 2016 13:37 - CONCLUSION: 1. Postsurgical changes are present at C4-C7, as above. Hardware demonstrates no acute finding. 2. There are degenerative changes at some of the remaining levels. However, no significant spinal canal stenosis is identified. 3. Nonspecific bilateral airspace consolidation within the lungs with enlarged lymph nodes in the superior mediastinum. Suggest correlating with the clinical history and consider chest imaging for further evaluation, if needed.. Spencer Jeffrey MD Objective Remarks GENERAL: AOX3, NAD. SKIN: Warm and dry. HEAD: Normocephalic. EYES: No scleral icterus. No injection or drainage. NECK: Supple, trachea midline. No JVD or lymphadenopathy. CARDIOVASCULAR: Regular rate and rhythm without murmurs, gallops, or rubs. RESPIRATORY: Breath sounds equal bilaterally. No accessory muscle use. GASTROINTESTINAL: Abdomen soft, non-tender, nondistended. MUSCULOSKELETAL: No cyanosis, or edema. BACK: Nontender without obvious deformity. No CVA tenderness. Procedures None. A/P Problem List: (1) Generalized weakness ICD Code: R53.1 Status: Acute (2) DM (diabetes mellitus) ICD Code: E11.9 Status: Acute (3) Respiratory abnormalities ICD Code: J98.9 Status: Acute (4) Hypothyroidism ICD Code: E03.9 Status: Acute (5) HTN (hypertension) ICD Code: I10 Status: Acute (6) Hypoxia ICD Code: R09.02 Status: Acute (7) Lung mass ICD Code: R91.8 Status: Acute (8) Tobacco abuse ICD Code: Z72.0 Status: Acute (9) COPD exacerbation ICD Code: J44.1 Status: Acute Assessment and Plan Patient is a 56-year-old female with primary medical history of HTN, Crohn's disease, DM 2, hypothyroidism, neuropathy who came into the hospital for evaluation of increasing fatigue, confusion, loss of balance. Acute respiratory failure COPD exacerbation VS CAP - Current a smoker, counseled. Placed on nicotine patch. Possibly with underlying COPD. - CT of the chest showed 1. Abnormal bilateral patchy alveolar opacities, as described above. Findings involve all the lobes but are lower lung zone predominant. These findings are new since November 2015. Additionally, there is mediastinal lymphadenopathy. One consideration with this findings included sarcoidosis. However there is no hilar lymphadenopathy in the distribution of the atypical other considerations include lymphoma or nonspecific inflammatory or infectious process. - Chest x-ray showed normal chest with coarse interstitial changes in both lungs - Pulmonary following - recommends repeat CT in 4-6 weeks. If infiltrates persist, may need a biopsy. - DuoNeb nebs scheduled and when necessary - Solu-Medrol IV 60 mg every 6 hours - Levaquin 750 mg PO daily - Symbicort twice a day. Guaifenesin twice a day - Continue O2 nasal cannula, keep O2 sat greater than 90% Fatigue, generalized weakness Poor balance - CT of the head showed no acute intracranial abnormality. Exam is stable compared to previous dated 02/05/16 - TSH 1.870 WNL, she is off thyroid meds x2 mos. - Monitor use of narcotics, can contribute to poor balance and fatigability - Troponin less than 0.02, CK 79 - Will ask occupational and physical therapy to eval and treat HTN - Continue with home medication lisinopril 20 mg daily DM 2 - Restart home medication metformin 1000 mg twice a day - Insulin sliding scale, monitor Accu-Cheks - HbA1C 5.9. Chronic pain, cervical Neuropathy - Cervical CT showed 1. Postsurgical changes are present at C4 to C7. Hardware demonstrates no acute finding. 2. There are degenerative changes at some of the remaining levels. However, no significant spinal canal stenosis is identified. 3. Nonspecific bilateral airspace consolidation within the lungs with enlarged lymph nodes in the superior mediastinum. - Continue home medication of morphine ER 60 mg twice a day. Hold for sedation. - Lyrica 25 mg daily. Hold for sedation Full code. Heparin SQ. Discussed with Dr. Pascual (Pulm). Will discuss with CM in the AM. Patient will likely need patients assistance to follow up with PCP, probably pulmonary and will need a CT chest in 4-6 weeks. Marixa Jackson DO Dec 11, 2016 12:52
[2016-12-11 13:19] LABS: ANION GAP 5 MEQ/L (5-15); AST (GOT) 15 U/L (15-37); BICARBONATE 28.6 MEQ/L (21.0-32.0); BLOOD UREA NITROGEN 12 MG/DL (7-18); CHLORIDE 104 MEQ/L (98-107); GLOMERULAR FILTRATION RATE 83 ML/MIN (>89); MAGNESIUM 1.9 MG/DL (1.5-2.5); POTASSIUM 3.7 MEQ/L (3.5-5.1); SODIUM (NA) 138 MEQ/L (136-145)
[2016-12-11 13:24] LABS: ALKALINE PHOSPHATASE 117 U/L (45-117); ALT (GPT) 17 U/L (10-53); FREE T4 0.81 NG/DL (0.76-1.46); TOTAL BILIRUBIN ADULT 0.3 MG/DL (0.2-1.0)
[2016-12-11 16:08] LABS: HEMOGLOBIN A1a 0.9 %; HEMOGLOBIN A1b 1.9 %; HEMOGLOBIN Ao 83.1 %; HEMOGLOBIN LA1C 3.1 %; HEMOGLOBIN P3 4.1 %
--- NOTE | 2016-12-11 19:32 | HHI.PR ---
Subjective Remarks 56 YOWF with COPD,Nicotine use, Crohn's dis has bilat infilt Breathing better no fever No CP Objective Vital Signs Vital Signs Date Time Temp Pulse Resp B/P Pulse Ox O2 Delivery O2 Flow Rate FiO2 12/11/16 16:00 98.3 75 18 113/55 96 12/11/16 12:00 97.9 58 16 110/53 96 12/11/16 08:36 92 Nasal Cannula 2.00 12/11/16 08:00 98.0 60 14 125/59 95 12/11/16 07:00 Nasal Cannula 2.00 12/11/16 04:00 98.4 64 20 99/52 92 12/11/16 00:30 97 Nasal Cannula 2.00 12/10/16 21:26 98.8 73 18 128/58 96 12/10/16 20:00 98.5 59 18 110/57 98 12/10/16 20:00 2.00 I/O 12/10/16 12/10/16 12/10/16 12/11/16 12/11/16 12/11/16 07:00 15:00 23:00 07:00 15:00 23:00 Intake Total 200 ml 960 ml Balance 200 ml 960 ml Intake Oral 200 ml 960 ml # Voids 1 1 2 Result Diagram: 12/11/16 1212 12/11/16 1212 Objective Remarks GENERAL: MBMN WF NAD SKIN: Warm and dry. HEAD: Normocephalic. EYES: No scleral icterus. No injection or drainage. NECK: Supple, trachea midline. No JVD or lymphadenopathy. CARDIOVASCULAR: Regular rate and rhythm without murmurs, gallops, or rubs. RESPIRATORY: Breath sounds equal bilaterally. No accessory muscle use. Exp rhonchi GASTROINTESTINAL: Abdomen soft, non-tender, nondistended. MUSCULOSKELETAL: No cyanosis, or edema. BACK: Nontender without obvious deformity. No CVA tenderness. A/P Assessment and Plan COPD Exac Bilat patchy infilt, infection vs inflamatory process Crohn's disease Nicotine use DM PLAN: IV Solumedrol Aerosol nebs Wean 02 monitor BS Cont Abx Will need rpt CT 4-6 weeks If infilt persits, will need bx DW Pt Olvin Pascual MD Dec 11, 2016 19:32
[2016-12-11] MEDS: LEVOFLOXACIN 750 MG TAB PO SCH (21:45)
[2016-12-12] VITALS (8 sets, daily range): BP systolic 90–111; BP diastolic 49–54; PULSE 59–81; RESP 17–20; TEMP 97.2–97.7; O2SAT 91–99
[2016-12-12] MEDS: methylPREDNISolone SOD SUCC 125 MG/2 ML VIAL IVP SCH ×3 (01:37→13:46)
[2016-12-12] MEDS: RESP: ALBUTEROL 2.5 MG/IPRATROPIUM 0.5 MG NEB (SCH) INH ×5 (03:57→16:20)
[2016-12-12] MEDS: HEPARIN SODIUM - SQ 10,000 UNITS/ML VIAL SQ SCH ×2 (05:27→13:46)
[2016-12-12] MEDS: INSULIN ASPART SUPPLEMENTAL SCALE SQ SCH ×2 (05:27→12:25)
[2016-12-12] MEDS: LISINOPRIL 20 MG TAB PO SCH (09:00)
[2016-12-12] MEDS: PREGABALIN 25 MG CAP PO SCH ×2 (09:00→10:05)
[2016-12-12] MEDS: metFORMIN HCL 500 MG TAB PO SCH ×2 (09:54→17:27)
[2016-12-12] MEDS: DOCUSATE SODIUM 50 MG/SENNA 8.6 MG TAB PO SCH (09:54)
[2016-12-12] MEDS: guaiFENesin E.R. 600 MG TAB PO SCH (09:54)
[2016-12-12] MEDS: NICOTINE 21 MG/24 HR PATCH TD SCH (09:54)
[2016-12-12] MEDS: MORPHINE SULFATE 60 MG CONTROLLED RELEASE TAB PO SCH (09:55)
[2016-12-12] MEDS: SODIUM CHLORIDE 0.9% FLUSH 10 ML FLUSH IV FLUSH SCH (09:56)
[2016-12-12] MEDS: BUDESONIDE-FORMOTEROL 160/4.5 MCG INHALER INH SCH (09:58)
[2016-12-12] MEDS ORDERED: PNEUMOCOCCAL POLYVALENT INJ 25 MCG/0.5 ML SYR IM ONE (10:00)
[2016-12-12] MEDS ORDERED: INFLUENZA VIRUS VACCINE (QUADRIVALENT) 0.5 ML SYR IM ONE (10:00)
[2016-12-12] MEDS ORDERED: PRED20 PO (14:08)
[2016-12-12] MEDS ORDERED: LEVA750T9 PO (14:08)
[2016-12-12] MEDS ORDERED: METF1000 PO (16:11)
--- NOTE | 2016-12-12 18:16 | HHI.PR ---
Subjective Remarks 56 YOWF with COPD,Nicotine use, Crohn's dis has bilat infilt Breathing better no fever No CP Weaned to RA Objective Vital Signs Vital Signs Date Time Temp Pulse Resp B/P Pulse Ox O2 Delivery O2 Flow Rate FiO2 12/12/16 16:20 91 21 12/12/16 16:00 97.3 81 17 111/54 98 12/12/16 12:00 97.7 70 17 90/49 94 12/12/16 08:51 98 21 12/12/16 08:20 59 12/12/16 08:20 Nasal Cannula 2.00 12/12/16 08:00 97.2 73 18 99/52 99 12/12/16 04:00 97.7 64 20 101/51 95 12/12/16 00:00 97.7 64 20 95/51 95 12/11/16 20:00 98.3 71 20 100/51 96 12/11/16 20:00 Nasal Cannula 2.00 I/O 12/11/16 12/11/16 12/11/16 12/12/16 12/12/16 12/12/16 07:00 15:00 23:00 07:00 15:00 23:00 Intake Total 960 ml 600 ml Balance 960 ml 600 ml Intake Oral 960 ml 600 ml # Voids 1 2 1 2 3 Result Diagram: 12/11/16 1212 12/11/16 1212 Objective Remarks GENERAL: MBMN WF NAD SKIN: Warm and dry. HEAD: Normocephalic. EYES: No scleral icterus. No injection or drainage. NECK: Supple, trachea midline. No JVD or lymphadenopathy. CARDIOVASCULAR: Regular rate and rhythm without murmurs, gallops, or rubs. RESPIRATORY: Breath sounds equal bilaterally. No accessory muscle use. Exp rhonchi GASTROINTESTINAL: Abdomen soft, non-tender, nondistended. MUSCULOSKELETAL: No cyanosis, or edema. BACK: Nontender without obvious deformity. No CVA tenderness. A/P Assessment and Plan COPD Exac Bilat patchy infilt, infection vs inflamatory process Crohn's disease Nicotine use DM PLAN: Aerosol nebs Wean 02 monitor BS Cont Abx Will need rpt CT 4-6 weeks If infilt persits, will need bx DW Pt DW Dr.Ahmad PHILLIPS plans underway Will FU in office 2 weeks Olvin Pascual MD Dec 12, 2016 18:16
--- NOTE | 2016-12-12 23:22 | HHI.DS ---
Discharge Summary Admission Date Dec 10, 2016 at 17:16 Discharge Date: Dec 12, 2016 Admitting Diagnosis generalized weakness, questionable lung malignancy, hypoxia (1) Generalized weakness ICD Code: R53.1 (2) DM (diabetes mellitus) ICD Code: E11.9 (3) Respiratory abnormalities ICD Code: J98.9 (4) Hypothyroidism ICD Code: E03.9 (5) HTN (hypertension) ICD Code: I10 (6) Hypoxia ICD Code: R09.02 (7) Lung mass ICD Code: R91.8 (8) Tobacco abuse ICD Code: Z72.0 (9) COPD exacerbation ICD Code: J44.1 Procedures None. Brief History - From Admission Written by Toyin Esquivel, acting as scribe for Dr. Bergman on 12/10/16 at 17: 54. Patient is a 56-year-old female with primary medical history of HTN, Crohn's disease, DM 2, hypothyroidism, neuropathy who came into the hospital for evaluation of increasing fatigue, confusion, loss of balance. Patient states that she has been tired, increasing sleepiness, states "passing out and falling asleep while standing." States she has a couple of these episodes in the past 6 months but over the weekend while working she feels that it has increased. On her days off Saturday and Saturday last week she thought that she slept for more than 18 hours. People have been noticing that she is off balance , words are coming out slow, and also with disorientation and increased confusion. She denies any falls. She also notes that she's been losing weight , she thought that is just because of her job at the [employer] however people have been telling her about her weight loss. Patient verified her medical history states that she has been diagnosed with diabetes for a while and has been taking metformin however she ran out of this medication about 3 months ago. Also states that her sugars are usually low at home less than 140s when she checks it even off metformin. Patient also states that she was diagnosed with hypothyroidism and has been taking Synthroid and she thinks the dose is 250 g however she ran out of this medication also about 2 months ago. States that she usually feels sleepy and has been gaining weight with being off of the medication however this time, she states that"I don't really feel the effects of the hypothyroidism being off of the medication because I'm just sleeping and losing weight." She also reports that she is on chronic pain management for her cervical problems for which she takes morphine ER 60 mg twice a day but she only takes it once a day for most times. Patient is on O2 nasal cannula, denies headaches, palpitations, chest pain, dizziness. Denies fevers, chills, nausea, vomiting, diarrhea. Denies any pain or discomfort on exam. CBC/BMP: 12/11/16 1212 12/11/16 1212 Significant Findings Laboratory Tests Test 12/10/16 12/10/16 12/10/16 12/11/16 12:50 13:07 17:52 12:12 White Blood Count 13.1 TH/MM3 (4.0-11.0) Platelet Count 147 TH/MM3 (150-450) Neutrophils (%) (Auto) 85.8 % 93.0 % (16.0-70.0) (16.0-70.0) Lymphocytes (%) (Auto) 8.7 % 5.0 % (9.0-44.0) (9.0-44.0) Neutrophils # (Auto) 11.3 TH/MM3 8.1 TH/MM3 (1.8-7.7) (1.8-7.7) Prothrombin Time 11.9 SEC (9.8-11.6) Alkaline Phosphatase 140 U/L (45-117) Troponin I LESS THAN 0.02 NG/ML (0.02-0.05) Acetaminophen Level LESS THAN 2.0 MCG/ML (10.0-30.0) Urine Protein 30 mg/dL (NEG-TRACE) Urine Glucose (UA) 300 mg/dL (NEG) Urine Leukocyte Esterase TRACE (NEG) Urine Bacteria RARE /hpf (NONE) Urine Mucus FEW /lpf (OCC) Urine Opiates Screen POS (NEG) Arterial Blood pH 7.37 (7.380-7.420) Arterial Blood Partial 44 mmHg (38-42) Pressure CO2 Arterial Blood 4.9 % (0-4) Carboxyhemoglobin Blood Gas Hemoglobin 11.5 G/DL (12.0-16.0) Lymphocytes # (Auto) 0.4 TH/MM3 (1.0-4.8) Estimat Glomerular Filtration 83 ML/MIN (>89) Rate Random Glucose 203 MG/DL (74-106) Phosphorus Level 1.2 MG/DL (2.5-4.9) Albumin 2.9 GM/DL (3.4-5.0) Imaging Last Impressions Head CT 12/10/16 1244 Signed Impressions: Service Date/Time: Saturday, December 10, 2016 13:37 - CONCLUSION: 1. No acute intracranial abnormality. Exam is stable compared to previous dated 02/05/16. Salvador Rodriguez MD Chest X-Ray 12/10/16 1244 Signed Impressions: Service Date/Time: Saturday, December 10, 2016 14:21 - CONCLUSION: Abnormal chest with coarse interstitial changes in both lungs Saturnino Rodriguez MD FACR Chest CT 12/10/16 0000 Signed Impressions: Service Date/Time: Saturday, December 10, 2016 15:42 - CONCLUSION: 1. Abnormal bilateral patchy alveolar opacities, as described above. Findings involve all lobes but are lower lung zone predominant. These findings are new since November 2015. Additionally, there is mediastinal lymphadenopathy. One consideration with these findings includes sarcoidosis. However, there is no hilar lymphadenopathy and the distribution would be atypical (sarcoidosis is typically upper lung zone predominant). Other considerations include lymphoma or nonspecific inflammatory or infectious processes. Consider pulmonary consultation for further evaluation. 2. No other acute findings identified. Spencer Jeffrey MD Cervical Spine CT 12/10/16 0000 Signed Impressions: Service Date/Time: Saturday, December 10, 2016 13:37 - CONCLUSION: 1. Postsurgical changes are present at C4-C7, as above. Hardware demonstrates no acute finding. 2. There are degenerative changes at some of the remaining levels. However, no significant spinal canal stenosis is identified. 3. Nonspecific bilateral airspace consolidation within the lungs with enlarged lymph nodes in the superior mediastinum. Suggest correlating with the clinical history and consider chest imaging for further evaluation, if needed.. Spencer Jeffrey MD PE at Discharge GENERAL: AOX3, NAD. SKIN: Warm and dry. HEAD: Normocephalic. EYES: No scleral icterus. No injection or drainage. NECK: Supple, trachea midline. No JVD or lymphadenopathy. CARDIOVASCULAR: Regular rate and rhythm without murmurs, gallops, or rubs. RESPIRATORY: Breath sounds equal bilaterally. No accessory muscle use. GASTROINTESTINAL: Abdomen soft, non-tender, nondistended. MUSCULOSKELETAL: No cyanosis, or edema. BACK: Nontender without obvious deformity. No CVA tenderness. Pt Condition on Discharge: Good Discharge Disposition: Discharge Home Discharge Time: > 30 minutes Discharge Instructions DIET: Follow Instructions for: Diabetic Diet Activities you can perform: Regular-No Restrictions Follow up Referrals: PCP Follow-up - 1 Week Pulmonology - 2 Weeks with Olvin Pascual MD New Medications: Prednisone (Prednisone) 20 Mg Tab 20 MG PO BID Inflammation #6 Ref 0 TAB Levofloxacin (Levaquin) 750 Mg Tablet 750 MG PO Q24H Infection #5 TAB Continued Medications: Lisinopril (Lisinopril) 20 Mg Tab 20 MG PO DAILY Ref 0 TAB Metformin (Metformin) 1,000 Mg Tab 1000 MG PO BIDPC With meals Blood Sugar Management #60 Ref 0 TAB (This prescription has been renewed) Morphine ER 24 HR (Morphine ER 24 HR) 60 Mg Caper 60 MG PO BID Pain Management Ref 0 CAP Pregabalin (Lyrica) 25 Mg Cap 25 MG PO DAILY #30 Ref 0 CAP Marixa Jackson DO Dec 12, 2016 23:22
== END 2016-12-12 19:17 | disposition home or self-care (01) | DRG 191 ==
LOC: NEPC 11:07 → NEDA 17:16 → N05B 19:39
PROVIDERS: ADMIT Hospitalist; ATTEND Hospitalist
DX: J44.1 Chronic obstructive pulmonary disease with (acute) exacerbation (principal); K50.90 Crohn's disease, unspecified, without complications; E11.40 Type 2 diabetes mellitus with diabetic neuropathy, unspecified; G89.29 Other chronic pain; F17.210 Nicotine dependence, cigarettes, uncomplicated; E03.9 Hypothyroidism, unspecified; I10 Essential (primary) hypertension; M54.2 Cervicalgia; R91.8 Other nonspecific abnormal finding of lung field; Z79.84 Long term (current) use of oral hypoglycemic drugs
CPT/HCPCS: 36600; 70450; 71020; 71260; 72125; 80053; 80307; 81001; 82550; 82805; 82948; 83036; 83735; 84100; 84439; 84443; 84484; 85025; 85610; 87040; 87070; 87086; 87205; 87449; 90732; 93005; 94150; 94640; 94664; 96360; J1644; J1815; J2930; J7030; Q9967